=== PATIENT | female | born 1980 | race Two or more races ===

== ENCOUNTER 2020-01-16 09:21 | Emergency (ER) | payer BC ==
[~2020-01-16] VITALS: Ht 162.6 cm; Wt 97.5 kg
[2020-01-16 09:27] VITALS: BP 140/86
--- NOTE | 2020-01-16 10:12 | NUR ---
NOTED TO HAVE COUGH. STRONG RA OXYGEN SATURATION. BEDSIDE XRAY COMPLETED.
--- NOTE | 2020-01-16 11:11 | NUR ---
DISCHARGE INSTRUCTIONS GIVEN AND AMBULATED FROM ER, STEADY GAIT
== END 2020-01-16 11:12 | disposition home or self-care (01) ==
LOC: ED 10:09
DX: U07.1 COVID-19 (principal); J12.89 Other viral pneumonia; R06.02 Shortness of breath; R05 Cough; R07.89 Other chest pain
CPT/HCPCS: 71045; 93005; 99283